=== PATIENT | female | born 1980 | race Caucasian/White ===

== ENCOUNTER → 2019-12-13 | Outpatient (CLI) | payer OTHER ==
--- NOTE | 2019-12-14 09:41 | MM ---
Reason for exam: clinical finding. Indicated problem(s): lump or thickening in the left breast. Physical Findings: Nurse Summary: 1cm nodule in the left breast at 4 o'clock (nurse mj). MG 3D Diag Mammo W/Cad LEVI Bilateral CC and MLO view(s) were taken. The breast tissue is heterogeneously dense. This may lower the sensitivity of mammography. Lucency at the site of left palpable representing breast fat. No suspicious abnormality. These results were verbally communicated with the patient and result sheet given to the patient on 12/13/19. ASSESSMENT: Incomplete: need additional imaging evaluation, BI-RAD 0 RECOMMENDATION: Ultrasound of the left breast. (palpable)
--- NOTE | 2019-12-14 09:43 | USB ---
Reason for exam: additional evaluation requested from abnormal screening. US Breast Limited LT Left limited breast ultrasound including focal area of concern, retroareolar and axilla demonstrates a 7 x 3 x 5mm cystic cluster at 3 o'clock and a 12 x 10 x 10mm oval cystic lesion at 4 o'clock BB. These results were verbally communicated with the patient and result sheet given to the patient on 12/13/19. ASSESSMENT: Benign, BI-RAD 2 RECOMMENDATION: Routine screening mammogram of both breasts in 1 year.
== END | disposition home or self-care (01) ==
LOC: RADMAMWWP 10:06
PROVIDERS: ATTEND Obstetrics & Gynecology
DX: N63.23 Unspecified lump in the left breast, lower outer quadrant (principal)
CPT/HCPCS: 77062; 77066